=== PATIENT | male | born 1975 | race Caucasian/White ===

== ENCOUNTER 2020-01-15 20:13 | Emergency (ER) | payer OTHER ==
--- NOTE | 2020-01-22 10:55 | EDM.PDOC ---
ED HPI GENERAL MEDICAL PROBLEM - General Chief Complaint: Lower Extremity Injury/Pain Stated Complaint: PAIN IN FOOT Time Seen by Provider: 01/15/20 20:40 Source of Information: Reports: Patient History Limitations: Reports: No Limitations - History of Present Illness INITIAL COMMENTS - FREE TEXT/NARRATIVE: Pt. presents to ER with complaints of gout flare-up. He states the he has developed R later ankle discomfort today. He states that this is similar to pain he has had in the past. Denies any calf pain. No pallor or duskiness to the extremity. Pt. denies any trauma. No fever or chills. No chest pain or shortness of breath. 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 [Unable to Verify Home Med List] 01/16/20 [History] Past Medical History Musculoskeletal History: Reports: Gout Social & Family History - Tobacco Use Smoking Status *Q: Current Every Day Smoker Years of Tobacco use: 25 Packs/Tins Daily: 1 - Recreational Drug Use Recreational Drug Use: No ED ROS GENERAL - Review of Systems Review Of Systems: Comprehensive ROS is negative, except as noted in HPI. ED EXAM, GENERAL - Physical Exam Exam: See Below Exam Limited By: No Limitations General Appearance: Alert, WD/WN, No Apparent Distress Extremities: Normal Capillary Refill, Joint Swelling, Limited Range of Motion, Other (mild edema and tenderness to R lateral ankle. No obvious deformity noted. CMS intact. No erythema to the area.). No: Pedal Edema, Slow Capillary Refill, Ghislaine's Sign, Leg Pain, Increased Warmth, Mottled, Pallor, Redness Neurological: Alert, Oriented, CN II-XII Intact, Normal Cognition, Normal Gait, Normal Reflexes, No Motor/Sensory Deficits Course - Vital Signs Last Recorded V/S: Last Vital Signs Temp 36.7 C 01/15/20 20:30 Pulse 82 01/15/20 20:30 Resp 14 01/15/20 20:30 BP 156/88 H 01/15/20 20:30 Pulse Ox 96 01/15/20 20:30 Departure - Departure Time of Disposition: 21:40 Disposition: Home, Self-Care 01 Clinical Impression: Gout - Discharge Information Instructions: Indomethacin capsules, Gout Referrals: PCP,Not In Area [Primary Care Provider] - Forms: ED Department Discharge Additional Instructions: Indomethacin 50mg 1 tab three times daily as needed for gout pain Recheck in clinic if not gradually improving. Minimize consumption of diet pop or foods high in purines (meat, tomatoes, etc) Increase intake of water Sepsis Event Note - Evaluation Sepsis Screening Result: No Definite Risk - Assessment/Plan Plan: Indomethacin 50mg 1 tab three times daily as needed for gout pain Recheck in clinic if not gradually improving. Minimize consumption of diet pop or foods high in purines (meat, tomatoes, etc) Increase intake of water
== END 2020-01-15 21:16 | disposition home or self-care (01) ==
LOC: SUPCPDRO 20:13 → VM.ED 20:13
DX: M10.9 Gout, unspecified (principal); F17.210 Nicotine dependence, cigarettes, uncomplicated
CPT/HCPCS: 99283